=== PATIENT | female | born 1990 | race Caucasian/White ===

== ENCOUNTER 2019-02-18 16:19 | Emergency (ER) | payer MEDICAID ==
--- NOTE | 2019-02-18 17:11 | ER Document Report ---
ED Medical Screen (RME) - General Chief Complaint: Cough Stated Complaint: COUGH/CONGESTION Time Seen by Provider: 02/18/19 17:02 Mode of Arrival: Ambulatory Information source: Patient Notes: This 28-year-old female approximately 6 months G4, P3 presents with body aches for a week and cough. Reports she is coughing up some phlegm. Reports she is unable to lay flat due to cough. Moved to [place] from [place] couple months ago. No recent trips. She reports she is tried multiple [id number] medications without relief of symptoms. No complaints of fever vomiting diarrhea. No complaints of abdominal pain. She reports she did have some vaginal discharge but was recently treated for chlamydia. She reports symptoms are better. I have greeted and performed a rapid initial assessment of this patient. A comprehensive ED assessment and evaluation of the patient, analysis of test results and completion of the medical decision making process will be conducted by additional ED providers. TRAVEL OUTSIDE OF THE [place] IN LAST 30 DAYS: No - Related Data Allergies/Adverse Reactions: No Known Allergies Allergy (Unverified 02/18/19 17:01) Past Medical History - Social History Chew tobacco use (# tins/day): No Frequency of alcohol use: None Drug Abuse: None Physical Exam - Vital signs Vitals: Temp Pulse Resp BP Pulse Ox 98.1 F 108 H 16 113/69 98 02/18/19 17:07 02/18/19 17:07 02/18/19 17:07 02/18/19 17:07 02/18/19 17:07 Course - Vital Signs Vital signs: Temp Pulse Resp BP Pulse Ox 98.1 F 108 H 16 113/69 98 02/18/19 17:07 02/18/19 17:07 02/18/19 17:07 02/18/19 17:07 02/18/19 17:07
--- NOTE | 2019-02-18 17:57 | RADIOLOGY REPORT (SQ) ---
EXAM DESCRIPTION: CHEST 2 VIEWS COMPLETED DATE/TIME: 02/18/2019 4:40 pm REASON FOR STUDY: cough, unable to lay flat. 6 months . COMPARISON: None. EXAM PARAMETERS: NUMBER OF VIEWS: two views TECHNIQUE: Digital Frontal and Lateral radiographic views of the chest acquired. RADIATION DOSE: NA LIMITATIONS: none FINDINGS: LUNGS AND PLEURA: No opacities, masses or pneumothorax. No pleural effusion. MEDIASTINUM AND HILAR STRUCTURES: No masses or contour abnormalities. HEART AND VASCULAR STRUCTURES: Heart normal size. No evidence for failure. BONES: No acute findings. HARDWARE: None in the chest. OTHER: No other significant finding. IMPRESSION: NO ACUTE RADIOGRAPHIC FINDING IN THE CHEST. TECHNICAL DOCUMENTATION: JOB ID: [id number] [employer]- All Rights Reserved Reading location - IP/workstation name: [email or web address]
[2019-02-18 18:10] LABS: ABSOLUTE EOSINOPHILS # (AUTO) 0.2 10^3/uL (0.0-0.6); ABSOLUTE MONOCYTES (AUTO) 0.4 10^3/uL (0.1-1.4); ABSOLUTE NEUT (AUTO) 4.8 10^3/uL (1.7-8.2); BASOPHILS % (AUTO) 0.2 % (0-2); EOSINOPHILS % (AUTO) 2.9 % (0-6); HEMATOCRIT 33.6 % (36.0-47.0); HEMOGLOBIN 11.7 g/dL (12.0-15.5); LYMPHOCYTES % (AUTO) 27.1 % (13-45); MEAN CORPUSCULAR HEMOGLOBIN 31.7 pg (27.0-33.4); MEAN CORPUSCULAR HGB CONC 34.9 g/dL (32.0-36.0); MEAN CORPUSCULAR VOLUME 91 fl (80-97); MONOCYTES % (AUTO) 5.9 % (3-13); PLATELET COUNT 199 10^3/uL (150-450); RED BLOOD COUNT 3.71 10^6/uL (3.72-5.28); RED CELL DISTRIBUTION WIDTH 13.3 % (11.5-14.0); SEGMENTED NEUTROPHILS % (AUTO) 63.9 % (42-78); TOTAL CELLS COUNTED % (AUTO) 100 %; WHITE BLOOD COUNT 7.5 10^3/uL (4.0-10.5)
[2019-02-18 18:26] LABS: A TYPE INFLUENZA AG NEGATIVE (NEGATIVE); B INFLUENZA AG NEGATIVE (NEGATIVE)
[2019-02-18 18:28] LABS: ALBUMIN 3.4 g/dL (3.5-5.0); ALKALINE PHOSPHATASE 53 U/L (38-126); ANION GAP 7 (5-19); ASPARTATE AMINO TRANSFERASE 17 U/L (14-36); BILIRUBIN,DIRECT 0.1 mg/dL (0.0-0.4); BILIRUBIN,TOTAL 0.2 mg/dL (0.2-1.3); BLOOD UREA NITROGEN 9 mg/dL (7-20); CALCIUM 9.1 mg/dL (8.4-10.2); CARBON DIOXIDE 25 mmol/L (22-30); CHLORIDE 104 mmol/L (98-107); GLUCOSE 92 mg/dL (75-110); POTASSIUM 4.1 mmol/L (3.6-5.0); TOTAL PROTEIN 6.4 g/dL (6.3-8.2)
--- NOTE | 2019-02-18 19:15 | ER Document Report ---
ED General - General Chief Complaint: Cough Stated Complaint: COUGH/CONGESTION Time Seen by Provider: 02/18/19 17:02 [facility] Provider: [facility] [Provider [facility]] - Follow up in 3-5 days [facility] [Provider Group] - Follow up in 3-5 days Mode of Arrival: Ambulatory Notes: 28-year-old G4, P3 approximately 6 months female presents with cough for 1 week. Patient states it is productive with clear phlegm without blood. Patient also has associated body aches. Patient denies any fever. Patient denies any related complaints including pelvic pain, vaginal bleeding, vaginal discharge, nausea/vomiting, abdominal pain. Patient denies any chest pain. Patient states she does have shortness of breath when she goes into coughing fits which are worse when she lays flat. Patient sees health department for [employer]. TRAVEL OUTSIDE OF THE [place] IN LAST 30 DAYS: No - Related Data Allergies/Adverse Reactions: No Known Allergies Allergy (Unverified 02/18/19 17:01) Past Medical History - General Information source: Patient - Social History Smoking Status: Current Every Day Smoker Chew tobacco use (# tins/day): No Frequency of alcohol use: None Drug Abuse: None Family History: None Patient has suicidal ideation: No Patient has homicidal ideation: No Review of Systems - Review of Systems Notes: Constitutional: Negative for fever. HENT: Negative for sore throat. Eyes: Negative for visual changes. Cardiovascular: Negative for chest pain. Respiratory: Positive for shortness of breath productive cough. Gastrointestinal: Negative for abdominal pain, vomiting or diarrhea. Genitourinary: Negative for dysuria. Musculoskeletal: Negative for back pain. Skin: Negative for rash. Neurological: Negative for headaches, weakness or numbness. 10 point ROS negative except as marked above and in HPI. Physical Exam - Vital signs Vitals: Temp Pulse Resp BP Pulse Ox 98.1 F 108 H 16 113/69 98 02/18/19 17:07 02/18/19 17:07 02/18/19 17:07 02/18/19 17:07 02/18/19 17:07 - Notes Notes: GENERAL: Well-appearing, well-nourished and in no acute distress. HEAD: Atraumatic, normocephalic. EYES: Extraocular movements intact, sclera anicteric, conjunctiva are normal. NECK: Normal range of motion, supple without lymphadenopathy or JVD. LUNGS: Lungs mildly diminished breath sounds in lower lobes but otherwise no wheezing, no rhonchi, no rales. Nonproductive cough. HEART: Regular rate and rhythm without murmurs, rubs or gallops. EXTREMITIES: Normal range of motion, no pitting or edema. No clubbing or cyanosis. NEUROLOGICAL: Cranial nerves II through XII grossly intact. Normal speech, normal gait. PSYCH: Normal mood, normal affect. SKIN: Warm, Dry, normal turgor, no rashes or lesions noted. Course - Re-evaluation Re-evalutation: 02/18/19 nontoxic, well-appearing 28-year-old 6-month female presents for productive cough for 1 week. Associated body aches. Patient states coughing is worse with laying flat and at night. Patient has shortness of breath when she has coughing fits. Patient has new leukocytosis, afebrile, CMP is within normal limits, flu test is negative. Chest x-ray is negative. Patient is not hypoxic or tachypneic. Lungs mildly diminished breath sounds in lower lobes but otherwise no wheezing, no rhonchi, no rales. Patient given prescription for albuterol inhaler and recommendations for OTC medications. Patient also provided with close follow-up with PCP. Patient voices understanding and agrees with plan of care. - Vital Signs Vital signs: Temp Pulse Resp BP Pulse Ox 98.1 F 108 H 16 113/69 98 02/18/19 17:07 02/18/19 17:07 02/18/19 17:07 02/18/19 17:07 02/18/19 17:07 - Laboratory Result Diagrams: 02/18/19 17:54 02/18/19 17:54 Laboratory results interpreted by me: 02/18/19 02/18/19 17:54 17:54 RBC 3.71 L Hgb 11.7 L Hct 33.6 L Sodium 135.8 L Albumin 3.4 L Discharge - Discharge Clinical Impression: Viral URI with cough, Bronchitis Condition: Stable Disposition: HOME, SELF-CARE Instructions: Upper Respiratory Illness ([facility]) Additional Instructions: Your chest x-ray was normal and did not show any pneumonias. Your labwork was reassuring. Your flu test was negative. Please use inhaler as prescribed. Due to being , this limits the medication you can take. For cough you may take Robitussin products that are alcohol free, Tylenol Cold/Flu/Sinus products, Motrin Cold/flu/sinus products, or liquid cold/flu/sinus products that are "alcohol free." Other medications you can take over the counter: sudafed, saline nasal spray, benadryl, chlor-trimeton, tylenol sinus. Please follow up with your obgyn or one of the clinics listed in 3-5 days. Return to ER for any worsening symptoms, including coughing up blood, fever not controlled by medication, chest pain, shortness of breath, nausea/vomiting, or any other symptoms that are concerning to you. Prescriptions: Albuterol Sulfate [Proair HFA Inhalation Aerosol 8.5 gm MDI] 2 puff IH Q4H PRN #1 mdi PRN Reason: Forms: Return to Work Referrals: [facility] [Provider Group] - Follow up in 3-5 days [facility] [Provider Group] - Follow up in 3-5 days
[2019-02-18 19:43] VITALS: BP 118/71
== END 2019-02-18 19:49 | disposition home or self-care (01) ==
LOC: ER 16:19
DX: O26.892 Other specified pregnancy related conditions, second trimester (principal); J06.9 Acute upper respiratory infection, unspecified; J40 Bronchitis, not specified as acute or chronic; O99.332 Smoking (tobacco) complicating pregnancy, second trimester; Z3A.24 24 weeks gestation of pregnancy
CPT/HCPCS: 36415; 71046; 80053; 85025; 87804; 99283